=== PATIENT | male | born 2000 | race African-American/Black ===

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

== ENCOUNTER 2019-02-25 15:54 | Emergency (ER) | payer MEDICAID, SELFPAY ==
[2019-02-25 15:55] VITALS: BP 149/93; PULSE 81; RESP 20; TEMP 37.6; O2SAT 100; BMI 20.9
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
[2019-02-25] MEDS: oxyCODONE 5 MG Tablet PO (16:47)
--- NOTE | 2019-02-25 18:28 | ED.DEP ---
ED Disposition - Plan for ED Patient: Instructions: ED Fx Face Prescriptions: Oxycodone HCl/Acetaminophen [Percocet 5/325] 1 tablet PO Q6H PRN PRN 3 Days #12 tablet PRN Reason: Pain Amoxicillin 500 mg PO TID #21 tablet Referrals: Josee Cuello MD [Primary Care Provider] - Julius Gold MD [STAFF PHYSICIAN] -
[2019-02-25] MEDS: AMOXICILLIN 500 MG CAPSULE PO (18:49)
[2019-02-25] MEDS: HYDROcodone Bitartrate/Apap 5/325 Tablet PO (18:52)
[2019-02-25 18:53] VITALS: BP 127/76; PULSE 86; RESP 16; O2SAT 100
[2019-02-25 18:54] VITALS: BP 127/76; PULSE 86; RESP 16; O2SAT 100
== END 2019-02-25 18:55 | disposition home or self-care (01) ==
PROVIDERS: Emergency Provider Emergency Medicine; Family Provider Pediatrics; PCP Pediatrics
DX: S02.40DA Maxillary fracture, left side, initial encounter for closed fracture (principal); Z72.0 Tobacco use; W21.89XA Striking against or struck by other sports equipment, initial encounter; Y93.53 Activity, golf; Y92.39 Other specified sports and athletic area as the place of occurrence of the external cause; Y99.8 Other external cause status
CPT/HCPCS: 70450; 70486; 99283

== ENCOUNTER → 2021-05-01 12:14 | Outpatient (CLI) | payer MEDICAID, SELFPAY ==
[2021-05-01 11:57] VITALS: BMI 20.9
--- NOTE | 2021-05-01 12:35 | RAD_ITS ---
STUDY: X-RAY - LEFT FOOT CLINICAL: Left foot pain mostly in the first and second toes, left foot injury. TECHNIQUE: 3 view(s) of the foot. COMPARISON: Radiographs 06/04/2017. FINDINGS: Normal talus, calcaneus, and tarsal bones. Normal visualized subtalar, talonavicular, calcaneocuboid, tarsal and tarsometatarsal articulations. Normal metatarsi. Normal metatarsophalangeal joint of the great toe. Normal tibial and fibular sesamoid bones. Normal interphalangeal joint of the great toe. Normal phalanges of the great toe. Normal second through fifth metatarsophalangeal joints. Normal interphalangeal joints and phalanges of the lesser toes. The soft tissue structures are unremarkable. RAD/Foot min 3 Views IMPRESSION: Normal x-ray examination of the left foot. Electronically Signed: Porter Kim MD at 13:13 EDT Tel , Service support ,
== END ==
PROVIDERS: PCP Physician Assistant; Referring Provider Physician Assistant Surgical; Visit Provider Physician Assistant Surgical
DX: S90.122A Contusion of left lesser toe(s) without damage to nail, initial encounter (principal); S90.32XA Contusion of left foot, initial encounter
CPT/HCPCS: 73630

== ENCOUNTER 2022-10-23 01:14 | Emergency (ER) | payer MEDICAID, SELFPAY ==
[2022-10-23 01:16] VITALS: BP 127/78; PULSE 84; RESP 15; TEMP 37.2; O2SAT 99; BMI 20.5
--- NOTE | 2022-10-23 01:51 | RAD_ITS ---
INDICATION: pain EXAMINATION/TECHNIQUE: X-RAY - LEFT XR Wrist Min 3 Views 3 VIEWS COMPARISON: None. FINDINGS: SOFT TISSUES: No soft tissue swelling or gas. No radiopaque foreign body. BONES/JOINTS: No acute fracture or subluxation.. Normal alignment. Preservation of the joint space.. No sclerotic or destructive changes observed. RAD/Wrist min 3 Views IMPRESSION: No acute fracture or dislocation. Electronically Signed: Marco Hanson MD at 2:46 EST ,
--- NOTE | 2022-10-23 02:25 | RAD_ITS ---
INDICATION: pain EXAMINATION/TECHNIQUE: X-RAY - LEFT XR Hand Min 3 Views 3 VIEWS COMPARISON: None. FINDINGS: SOFT TISSUES: No soft tissue swelling or gas. No radiopaque foreign body. BONES/JOINTS: No acute fracture or subluxation.. Normal alignment. Preservation of the joint space.. No sclerotic or destructive changes observed. RAD/Hand Min 3 Views IMPRESSION: No acute fracture or dislocation. Electronically Signed: Marco Hanson MD at 2:45 EST ,
--- NOTE | 2022-10-23 03:43 | EX.ED.DYSGE1 ---
HPI History of Present Illness Chief Complaint: Fall Narrative Narrative: Patient is a 22-year-old male with no significant past medical history. He states that this evening/morning he was sleeping when his girlfriend woke him up and told him that he needs to go locked the car door. He states he ran outside to do this and after locking the car was running back in when he tripped up the steps and fell. He denies striking his head any loss of consciousness or blood thinner use. He states that he injured his knees and hands and was worried about a possible broken bone secondary to this and therefore comes in for evaluation [facility] Medical History no medical history Home Medications hydrocodone-acetaminophen 5-325mg 5mg-325mg 1 tab PO Q6H PRN pain 2 days #8 tabs 10/23/22 [Rx Last Taken Unknown] Allergy/AdvReac Type Severity Reaction Status Date / Time No Known Allergies Allergy Verified 05/01/21 13:38 Surgical History no surgical history Social History Smoking Status: Current every day smoker tobacco type: e-cigarettes ROS ROS ED Constitutional Constitutional ED: Denies chills or fever(s) Eyes Eyes: Denies change in vision ENT ENT ED: Denies sore throat Cardiovascular Cardiovascular: Denies chest pain Respiratory/Chest Respiratory/Chest: Denies cough or dyspnea Gastrointestinal Gastrointestinal: Denies abdominal pain, diarrhea, nausea or vomiting Genitourinary Genitourinary ED: Denies dysuria Musculoskeletal Musculoskeletal: Reports other Details: Positive bilateral hand and bilateral knee pain ; Denies back pain Integumentary Reports Abrasions Neurologic Neurologic: Denies headache(s) or paresthesias Hematologic/Lymphatic Hematologic/Lymphatic: Denies easy bleeding or easy bruising EXAM Physical Exam Const Vital Signs: 10/23/22 01:16 10/23/22 01:23 10/23/22 03:51 Temperature 98.9 F Temperature Source Temporal Pulse Rate 84 Respiratory Rate 15 Respiratory Effort Normal Non-Labored Respiratory Depth Normal Respiratory Pattern Normal Blood Pressure 127/78 H Blood Pressure Mean 94 Pulse Ox 99 99 Oxygen Delivery Method Room Air Room Air Room Air Positive well nourished and well developed General Appearance ED: well developed HEENT Reports moist mucous membranes HEENT Narrative: No signs of depressed or basilar skull fracture Eyes PERRL and EOMs intact bilaterally Neck supple Neck Narrative: No bony deformity or step-off of the cervical spine no midline pain with palpation Chest Wall palpation of chest normal Chest Narrative: No bony deformity or crepitance noted Resp normal respiratory effort and clear to auscultation bilaterally Cardio regular rate and regular rhythm GI normal to inspection, nondistended, normoactive bowel sounds, non-tender, non-distended and no masses Auscultation: normoactive bowel sounds Palpation: soft Back/Spine Back/Spine Narrative: No bony deformity or step-off of the thoracic or lumbar spine no midline pain with palpation Extremity Extremity Narrative: Patient has a superficial epidermal abrasion to the anterior aspect of the left knee and a epidermal abrasion to the anterior aspect of the right knee consistent with fall. Despite this there is no obvious bony deformity or joint effusion. Patellar tendon is intact bilaterally and knee ligaments are also stable bilaterally. Bilateral lower extremities are neurovascular intact Bilateral upper extremities are neurovascularly intact. Patient has superficial abrasions across the third and fourth digit of the left hand that are dermal layer deep with minimal ooze of blood and no foreign body. Patient has a superficial abrasion across the second digit of the right hand. There is no obvious bony deformity or joint effusion no ligamentous or tendon injury noted. No pain in either anatomical snuffbox. Neuro oriented x3 and CN's II-XII intact bilaterally Sensorium / Orientation: alert Psych mental status grossly normal Skin Skin Narrative: Superficial abrasions as documented above without secondary changes to suggest infection MDM MDM MDM Narrative Medical decision making narrative: Patient reported mechanical fall and therefore there is no need for cardiac or syncope work-up. He had no signs of head trauma and is not on a blood thinner so there is no need for head CT. X-rays were obtained of the areas that were most painful and revealed no acute fractures or dislocations. The wounds did not require suturing and he has no signs of secondary infection at this point. Therefore there is no need for further work-up and patient is otherwise safe for discharge with symptomatic care Radiography Diagnostic Testing: Clinical Impression(s) from Imaging Studies Wrist X-Ray 10/23/22 01:51 IMPRESSION: No acute fracture or dislocation. Electronically Signed: Marco Hanson MD at 2:46 EST Reading Location ID and State: [address] [place] [address] Tel , Service support , Hand X-Ray 10/23/22 02:25 IMPRESSION: No acute fracture or dislocation. Electronically Signed: Marco Hanson MD at 2:45 EST , X-ray of the left wrist and left hand as interpreted by the emergency medicine physician reveals no acute fracture dislocation or foreign body Discharge Plan Triage Chief Complaint: Fall ED Provider: Adarsh Ca Dx/Rx/DC Orders Clinical Impression: Contusion of multiple sites, Abrasions of multiple sites Instructions: Bruises (Contusions), Wound Care Dc Prescriptions: New hydrocodone-acetaminophen 5-325 mg tablet 1 tab PO Q6H PRN (Reason: pain) 2 Days Qty: 8 0RF Primary Care Provider: Carina Del Valle Referrals: Carina Del Valle PA [Primary Care Provider] - Activity Restrictions/Additional Instructions: Please wash your wound with soap and water to prevent infection and if he have any further concerns return to the ER for repeat evaluation Disposition Disposition: Home, Self Care Discharge Date/Time: 10/23/22 03:53
[2022-10-23 03:51] VITALS: O2SAT 99
== END 2022-10-23 03:53 | disposition home or self-care (01) ==
PROVIDERS: Emergency Provider Emergency Medicine; PCP Physician Assistant; Visit Provider Emergency Medicine
DX: S80.211A Abrasion, right knee, initial encounter (principal); F17.290 Nicotine dependence, other tobacco product, uncomplicated; S80.212A Abrasion, left knee, initial encounter; S60.511A Abrasion of right hand, initial encounter; S60.512A Abrasion of left hand, initial encounter; W19.XXXA Unspecified fall, initial encounter
CPT/HCPCS: 73110; 73130; 99282; A4216

== ENCOUNTER 2023-03-09 21:31 | Emergency (ER) | payer MEDICAID, SELFPAY ==
[2023-03-09 21:32] VITALS: BP 112/65; PULSE 70; RESP 15; TEMP 36.8; O2SAT 97; BMI 21.1
--- NOTE | 2023-03-09 21:47 | ED.VIS.DENTA ---
HPI History of Present Illness Chief Complaint: Dental Detail of Chief Complaint: Dental pain Informant: patient Narrative Narrative: Patient presents with pain left upper tooth x2 days. He denies injury or trauma. Patient states he has poor dentition and has been getting a lot of dental work over the last 6 months he has had 6 root canals. Patient denies any fever. Cannot get comfortable at home. He sees out for dental normally. PFSH PFSH Home Medications hydrocodone-acetaminophen 5-325mg 5mg-325mg 1 tab PO Q6H PRN pain 2 days #8 tabs 10/23/22 [Rx Last Taken Unknown] hydrocodone-acetaminophen 5-325mg 5mg-325mg 1 tab PO Q4H PRN PRN Pain 2 days #10 TABLETS 03/09/23 [Rx Last Taken Unknown] Allergy/AdvReac Type Severity Reaction Status Date / Time No Known Allergies Allergy Verified 03/09/23 21:34 Social History Smoking Status: Current every day smoker tobacco type: e-cigarettes ROS ROS ED Review of Systems ROS Unobtainable: other Constitutional Constitutional ED: Reports lethargy; Denies chills, fever(s), sweats or weight loss Eyes Eyes: Denies blurry vision, change in vision or diplopia ENT ENT ED: Reports other Details: Dental pain ; Denies rhinorrhea or sore throat Cardiovascular Cardiovascular: Reports chest pain and racing heartbeat; Denies orthopnea Respiratory/Chest Respiratory/Chest: Denies cough, dyspnea, dyspnea on exertion, orthopnea or sputum Gastrointestinal Gastrointestinal: Denies abdominal pain, diarrhea, nausea or vomiting Genitourinary Genitourinary ED: Denies dysuria, hematuria or urinary frequency Musculoskeletal Musculoskeletal: Denies arthralgias, back pain, myalgias or neck pain Integumentary Denies abscess, Abrasions or rash Neurologic Neurologic: Denies headache(s) or weakness Psychiatric Psychiatric: Denies anxiety, depression or suicidal thoughts Endocrine Endocrinology: Denies polydipsia, polyphagia or polyuria Hematologic/Lymphatic Hematologic/Lymphatic: Denies easy bleeding, easy bruising or lymphadenopathy Allergic/Immunologic Allergic/Immunologic ED: Denies mouth swelling, tongue swelling or urticaria EXAM Physical Exam Const Vital Signs: 03/09/23 21:32 Temperature 98.2 F Temperature Source Temporal Pulse Rate 70 Respiratory Rate 15 Blood Pressure 112/65 Blood Pressure Mean 80 Pulse Ox 97 Oxygen Delivery Method Room Air Positive well nourished and well developed General Appearance ED: well developed and NAD HEENT Reports TM's clear and moist mucous membranes HEENT Narrative: Dentition-patient has tenderness to palpation over tooth #13 and 14. There is no gingival erythema or abscess noted. No fractures noted. He has no trismus on exam. No facial erythema or cellulitis. normocephalic and atraumatic; Negative for trauma or tenderness Tympanic Membrane ED: Yes TM's clear Eyes PERRL and EOMs intact bilaterally General Eye ED: Negative for pale conjunctiva or scleral icterus Neck no lymphadenopathy, supple and no JVD General: Negative for tenderness Chest Wall inspection of chest normal and palpation of chest normal Chest: Negative for tenderness Resp normal respiratory effort and clear to auscultation bilaterally Effort and Inspection: Negative for respiratory distress or pain with movement Auscultation: Negative for rhonchi, wheezes or diminished lung sounds Cardio regular rate, regular rhythm, S1 normal heart sound, S2 normal heart sound and no murmurs Peripheral Pulses: pulses 2+ throughout GI normal to inspection, nondistended, normoactive bowel sounds, soft to palpation, non-tender, non-distended and no masses Back/Spine no CVA tenderness and no thoracic nor lumbar tenderness Extremity normal to inspection General Extremety ED: Negative for edema General Extremity: Negative for edema Neuro oriented x3, CN's II-XII intact bilaterally, no sensory deficits noted and gait normal Sensorium / Orientation: awake, alert, oriented to person, oriented to place and oriented to time Motor Exam: strength 5/5 throughout and strength abnormal Psych mental status grossly normal Skin no rashes or lesions noted and no wounds MDM MDM MDM Narrative Medical decision making narrative: Patient with left upper dental pain. Will start on amoxicillin. Also will give a prescription for [place] for pain. He is advised to follow-up with dentist at the earliest possible convenience. Discharged home stable condition. Discharge Plan Triage Chief Complaint: Dental ED Provider: Veronica Payne Dx/Rx/DC Orders Clinical Impression: Pain, dental Instructions: ED Dental Pain Prescriptions: New hydrocodone-acetaminophen [hydrocodone-acetaminophen] 5-325 mg tablet 1 tab PO Q4H PRN PRN (Reason: Pain) 2 Days Qty: 10 0RF No Action hydrocodone-acetaminophen 5-325 mg tablet 1 tab PO Q6H PRN (Reason: pain) 2 Days Qty: 8 0RF Primary Care Provider: Carina Del Valle Referrals: Carina Del Valle, PA [Primary Care Provider] - Disposition Disposition: Home, Self Care
[2023-03-09] MEDS: AMOXICILLIN 500 MG CAPSULE PO (22:13)
[2023-03-09] MEDS: HYDROcodone Bitartrate/Apap 5/325 Tablet PO (22:14)
== END 2023-03-09 22:46 | disposition home or self-care (01) ==
LOC: ED 21:51
PROVIDERS: Emergency Provider Emergency Medicine; PCP Physician Assistant; Visit Provider Emergency Medicine
DX: K08.89 Other specified disorders of teeth and supporting structures (principal); F17.290 Nicotine dependence, other tobacco product, uncomplicated
CPT/HCPCS: 99283

== ENCOUNTER 2023-03-10 20:16 | Emergency (ER) | payer MEDICAID, SELFPAY ==
[2023-03-10 20:17] VITALS: BP 122/80; PULSE 62; RESP 16; TEMP 36.8; O2SAT 100; BMI 20.7
--- NOTE | 2023-03-10 21:22 | ED.VIS.DENTA ---
HPI History of Present Illness Chief Complaint: Dental Detail of Chief Complaint: Dental pain left upper molar/bicuspid Informant: patient Onset/Context/Timing Onset: Days Context: Sudden Onset Timing: Continuous Quality: Pain Location: Lingular side of the left upper molar/bicuspid Current Severity: Mild Maximum Severity: Moderate Worsened by: Nothing Relieved by: - (Nothing) Associated Symptoms Assocated Symptom - Dental: Negative for fever, jaw swelling, face swelling, cold sensitivity or hot sensitivity Narrative Narrative: Patient is is a 21-year-old male was seen yesterday. He was prescribed pain meds but not antibiotics. He presents because he believes he needs antibiotics. He denies history medic fever, heart murmur, SBE and is not immune suppressed. He denies difficulty opening closing his mouth. He denies drooling. No change in voice. No swelling of his face. Denies erythema of his face. Prior similar symptoms: Yes Recent Illness/Hospitalization: Yes PFSH PFSH Medical History no medical history Home Medications hydrocodone-acetaminophen 5-325mg 5mg-325mg 1 tab PO Q6H PRN pain 2 days #8 tabs 10/23/22 [Rx Last Taken Unknown] hydrocodone-acetaminophen 5-325mg 5mg-325mg 1 tab PO Q4H PRN PRN Pain 2 days #10 TABLETS 03/09/23 [Rx Last Taken Unknown] penicillin V potassium 250 mg tablet 500 mg PO 4X/DAY #28 tabs 03/10/23 [Rx Last Taken Unknown] Allergy/AdvReac Type Severity Reaction Status Date / Time No Known Allergies Allergy Verified 03/10/23 20:20 Social History Smoking Status: Current every day smoker tobacco type: e-cigarettes ROS ROS ED Constitutional Constitutional ED: Denies chills, fever(s), subjective, sweats or weight loss Eyes Eyes: Denies blurry vision, change in vision or other ENT ENT ED: Reports other Details: Per HPI narrative ; Denies ear pain, rhinorrhea or sore throat Cardiovascular Cardiovascular: Denies chest pain, palpitations or racing heartbeat Respiratory/Chest Respiratory/Chest: Denies cough, dyspnea or dyspnea on exertion Gastrointestinal Gastrointestinal: Denies nausea or vomiting Integumentary Denies rash Neurologic Neurologic: Denies headache(s) Allergic/Immunologic Allergic/Immunologic ED: Denies mouth swelling, tongue swelling or urticaria EXAM Physical Exam Const Vital Signs: 03/10/23 20:17 Temperature 98.3 F Temperature Source Temporal Pulse Rate 62 Respiratory Rate 16 Blood Pressure 122/80 H Blood Pressure Mean 94 Pulse Ox 100 Oxygen Delivery Method Room Air Positive well nourished and well developed General Appearance ED: well developed and NAD HEENT Reports TM's clear Face and Sinus: Negative for sinuses nontender Tympanic Membrane ED: Yes TM's clear Mouth ED: Yes oral and palatal mucosa normal, Yes lips normal, Yes tongue normal, Yes salivary gland normal, No mouth trauma and Yes oral and palatal mucosa abnormal Mouth: oral and palatal mucosa normal, lips normal, tongue normal, salivary gland normal, No mouth trauma and oral and palatal mucosa abnormal Teeth and Gingiva: abnormal tooth and associated gingiva, caries and gingiva abnormal; Negative for poor dentition or teeth discoloration Throat: posterior oropharynx normal Eyes PERRL and EOMs intact bilaterally General Eye ED: Negative for pale conjunctiva or scleral icterus Neck no lymphadenopathy, supple and no JVD Neck Narrative: Trachea is midline. There is no in-store X straw. General: normal visual inspection Resp normal respiratory effort, no retractions and clear to auscultation bilaterally Cardio regular rate, regular rhythm, S1 normal heart sound, S2 normal heart sound and no murmurs Neuro oriented x3, CN's II-XII intact bilaterally and moves all extremities Sensorium / Orientation: alert Psych mental status grossly normal Skin no rashes or lesions noted and no wounds MDM MDM MDM Narrative Medical decision making narrative: Dental carry involving tooth #13. There is abnormality of the hard palate in the proximity of tooth #13. There is no fluctuance. Patient has a Noted on tooth #14. There is no trismus. There is notes of facial cellulitis. Patient was treated with amoxicillin. He has been instructed to contact the dentist. Discharge Plan Triage Chief Complaint: Dental ED Provider: Lyle Dunbar Dx/Rx/DC Orders Clinical Impression: Pain, dental Instructions: ED Dental Pain Prescriptions: New penicillin V potassium 250 mg tablet 500 mg PO 4X/DAY Qty: 28 0RF No Action hydrocodone-acetaminophen 5-325 mg tablet 1 tab PO Q6H PRN (Reason: pain) 2 Days Qty: 8 0RF hydrocodone-acetaminophen [hydrocodone-acetaminophen] 5-325 mg tablet 1 tab PO Q4H PRN PRN (Reason: Pain) 2 Days Qty: 10 0RF Primary Care Provider: Carina Del Valle Referrals: Carina Del Valle, PA [Primary Care Provider] - Dentist,Your [STAFF PHYSICIAN] - As soon as possible Activity Restrictions/Additional Instructions: 1. You need to contact the dentist to have x-rays and definitive care to alleviate your pain. Disposition Disposition: Home, Self Care
[2023-03-10] MEDS: Naproxen 250 MG Tablet 500 MG PO (21:39)
[2023-03-10] MEDS: Penicillin Vk 250 MG Tablet 500 MG PO (21:39)
== END 2023-03-10 21:41 | disposition home or self-care (01) ==
LOC: ED 21:34
PROVIDERS: Emergency Provider Emergency Medicine; PCP Physician Assistant; Visit Provider Emergency Medicine
DX: K08.89 Other specified disorders of teeth and supporting structures (principal); L03.211 Cellulitis of face; F17.290 Nicotine dependence, other tobacco product, uncomplicated
CPT/HCPCS: 99283